=== PATIENT | male | born 1960 | race Caucasian/White ===

== ENCOUNTER 2017-10-11 14:16 | Inpatient (IN) ==
[2017-10-11 15:40] LABS: Basophils # 0.1 K/mcL (0.0-0.2); Basophils % 0.8 %; Eosinophils # 0.1 K/mcL (0.0-0.6); Eosinophils % 1.5 %; Hematocrit 43.7 % (37.5-50.1); Immature Granulocytes % 0.7 % (0-4); Lymphocytes # 1.1 K/mcL (0.6-4.6); Lymphocytes % 18.5 %; Mean Corpuscular Hemoglobin 27.6 pg (28.0-33.3); Mean Platelet Volume 9.9 fL (9.4-12.4); Monocytes # 0.8 K/mcL (0.0-1.3); Monocytes % 12.6 %; Nucleated Red Blood Cells 0.5 /100 WBC (0); Platelet Count 269 K/mcL (140-400); Red Blood Count 5.08 M/mcL (4.19-5.50); Red Cell Distribution Width 15.9 % (11.5-14.5); Segmented Neutrophils % 65.9 %
[2017-10-11 15:49] LABS: INR 1.7
[2017-10-11 15:57] LABS: Troponin I < 0.03 ng/mL (< 0.04)
--- NOTE | 2017-10-11 17:12 | Emergency Department Note ---
Disposition Clinical Impression: CHF exacerbation Qualifiers: Heart failure type: combined systolic and diastolic Qualified Code(s): I50.43 - Acute on chronic combined systolic (congestive) and diastolic (congestive) heart failure Fluid overload Qualifiers: Hypervolemia type: unspecified Qualified Code(s): E87.70 - Fluid overload, unspecified Disposition: Admitted As Inpatient Condition: Undetermined Referrals: NONE,PCP [Primary Care Provider] - Forms: ED Satisfaction Letter, Work/School Release Time of Disposition: 19:19 General Adult HPI - General Chief complaint: ED General Medical Stated complaint: SWELLING LEGS Time Seen by Provider: 10/11/17 16:43 Source: patient Mode of arrival: ambulatory Limitations: no limitations Nursing Notes Reviewed: Yes Vital Signs Reviewed: Yes - History of Present Illness HPI Narrative: 56-year-old male with extensive history of congestive heart failure with an EF of roughly 10% according to patient's history. He arrives to the emergency department complaining of worsening abdominal pain, swelling and bilateral lower extremity swelling as well as dyspnea when he lays flat. The patient states this is ongoing for the past few days. He denies any chest pain. The patient states he was recently released from the hospital 4 days ago. The patient denies any other complaints at this time. Pain Scale: 0 - Related Data Home Medications Medication Instructions Recorded Confirmed Apixaban [Eliquis] 5 mg PO BID 10/11/17 10/11/17 Carvedilol 3.125 mg PO BID 10/11/17 10/11/17 Lidocaine Patch [Lidoderm 5% patch] 1 each TP DAILY PRN 10/11/17 10/11/17 Lovastatin [Mevacor] 20 mg PO QPM 10/11/17 10/11/17 Oxycodone HCl/Acetaminophen 1 each PO Q6H PRN 10/11/17 10/11/17 [Percocet 5-325 mg Tablet] Pantoprazole Sodium [Protonix] 40 mg PO QAM 10/11/17 10/11/17 Potassium Chloride [K-Tab ER] 20 meq PO BID 10/11/17 10/11/17 Allergies Allergy/AdvReac Type Severity Reaction Status Date / Time No Known Allergies Allergy Verified 10/11/17 14:43 All systems ED: reviewed and negative except as stated. Constitutional: Reports: weakness. Denies: fever, chills ENT ED: Denies: congestion Cardiovascular: Reports: dyspnea on exertion, orthopnea, edema. Denies: chest pain, palpitations, syncope Respiratory: Reports: dyspnea. Denies: cough, wheezes Gastrointestinal: Denies: abdominal pain, nausea, vomiting Genitourinary: Denies: urgency, dysuria Musculoskeletal: Denies: back pain Neurological: Denies: headache Past Medical History - Past Medical History Attestation: Yes The following information was validated with the patient. Source: patient Medical history: Reports: CHF, hyperlipidemia, hypertension, myocardial infarction Psychiatric history: Reports: no psych history - Social History Smoking Status: Former smoker Smokeless Tobacco Status: No Alcohol use: Reports: none Drug use: Reports: none Physical Exam - General Limitations: no limitations General appearance: alert, in no apparent distress - Head Head exam: atraumatic, normocephalic, normal inspection - Eye Eye exam: Present: normal appearance, PERRL, EOMI - ENT ENT exam: normal exam, normal oropharynx, mucous membranes moist - Neck Neck exam: Present: full ROM, trachea midline, other (JVD noted on exam) - Chest Chest inspection: Present: normal inspection, symmetric chest wall rise - Respiratory Respiratory exam: Present: normal lung sounds bilaterally - Cardiovascular Cardiovascular exam: Present: regular rate - Abdominal Exam Abdominal exam: Present: soft, Non-Tender. Absent: tenderness, distention, guarding, rebound, rigidity - Extremities Exam Extremities exam: Present: normal inspection, full ROM. Absent: tenderness, pedal edema - Neurological Exam Neurological exam: Present: alert, oriented X3 - Skin Skin exam: Present: warm Course Vital Signs Temperature 0 F L 10/11/17 14:42 Pulse Rate 89 10/11/17 14:42 Respiratory Rate 16 10/11/17 14:42 Blood Pressure 101/74 10/11/17 14:42 O2 Sat by Pulse Oximetry 99 10/11/17 14:42 Temperature 0 F L 10/11/17 14:42 Pulse Rate 80 10/11/17 17:03 Respiratory Rate 18 10/11/17 17:03 Blood Pressure 91/75 10/11/17 17:03 O2 Sat by Pulse Oximetry 96 10/11/17 17:03 Oxygen Delivery Oxygen Delivery Room Air Medical Decision Making - MDM Narrative Medical decision making narrative: Workup in the emergency department demonstrates findings consistent with a CHF exacerbation the patient is an elevated BNP. There is cardiomegaly noted on chest x-ray. In addition the patient does have some elevated bilirubin, but EKG demonstrates no malignant etiology for this. This is likely reactionary finding associated with the patient's CHF. The patient has a history of ascites that was needed to be drawn off by paracentesis. Patient does have some noted ascites on examination as well. The patient will be admitted to the hospital at this time for further workup and care. The patient made aware and agrees to plan. We did administer 40 mg IV Lasix upon arrival to the emergency department. No further questions or concerns noted at this time. Accepted by Dr. Carroll. - Lab Data Lab results reviewed: Yes I reviewed the patient's lab results. Result diagrams: 10/11/17 14:58 10/11/17 15:23 Lab Results 10/11/17 10/11/17 10/11/17 Range/Units 14:48 14:58 14:58 WBC 6.1 (4.3-11.1) K/mcL RBC 5.08 (4.19-5.50) M/mcL Hgb 14.0 (12.9-16.9) g/dL Hct 43.7 (37.5-50.1) % MCV 86.0 (83.0-100.0) fL MCH 27.6 L (28.0-33.3) pg MCHC 32.0 (31.6-35.5) g/dL RDW 15.9 H (11.5-14.5) % Plt Count 269 (140-400) K/mcL MPV 9.9 (9.4-12.4) fL Immature Gran % 0.7 (0-4) % Seg Neutrophils % 65.9 % Lymphocytes % 18.5 % Monocytes % 12.6 % Eosinophils % 1.5 % Basophils % 0.8 % Neutrophils # 4.0 (1.6-8.9) K/mcL Lymphocytes # 1.1 (0.6-4.6) K/mcL Monocytes # 0.8 (0.0-1.3) K/mcL Eosinophils # 0.1 (0.0-0.6) K/mcL Basophils # 0.1 (0.0-0.2) K/mcL Nucleated RBCs/100 WBC 0.5 H (0) /100 WBC PT 19.0 H (9.4-12.1) Seconds INR 1.7 APTT 36.0 (26.0-36.0) Seconds Sodium (136-145) mEq/L Potassium (3.5-5.1) mEq/L Chloride (98-107) mEq/L Carbon Dioxide (23-29) mEq/L BUN (6-20) mg/dL Creatinine (0.70-1.30) mg/dL Est GFR ( Amer) (> 60) Est GFR (Non-Af Amer) (> 60) BUN/Creatinine Ratio (6-26) Glucose (70-105) mg/dL Calculated Osmolality (280-300) Calcium (8.6-10.3) mg/dL Total Bilirubin (0.3-1.0) mg/dL Direct Bilirubin (0.0-0.2) mg/dL Indirect Bilirubin (0.0-1.2) mg/dL AST (13-39) Units/L ALT (7-52) Units/L Alkaline Phosphatase (34-104) Units/L Troponin I (< 0.04) ng/mL B-Natriuretic Peptide 1848 H (Less than 100) pg/mL Serum Total Protein (6.4-8.9) g/dL Albumin (3.5-5.7) g/dL Globulin (2.4-3.5) g/dL Albumin/Globulin Ratio (1.1-2.2) /10/25 Range/Units 15:23 WBC (4.3-11.1) K/mcL RBC (4.19-5.50) M/mcL Hgb (12.9-16.9) g/dL Hct (37.5-50.1) % MCV (83.0-100.0) fL MCH (28.0-33.3) pg MCHC (31.6-35.5) g/dL RDW (11.5-14.5) % Plt Count (140-400) K/mcL MPV (9.4-12.4) fL Immature Gran % (0-4) % Seg Neutrophils % % Lymphocytes % % Monocytes % % Eosinophils % % Basophils % % Neutrophils # (1.6-8.9) K/mcL Lymphocytes # (0.6-4.6) K/mcL Monocytes # (0.0-1.3) K/mcL Eosinophils # (0.0-0.6) K/mcL Basophils # (0.0-0.2) K/mcL Nucleated RBCs/100 WBC (0) /100 WBC PT (9.4-12.1) Seconds INR APTT (26.0-36.0) Seconds Sodium 130 L (136-145) mEq/L Potassium 4.9 (3.5-5.1) mEq/L Chloride 97 L (98-107) mEq/L Carbon Dioxide 25 (23-29) mEq/L BUN 26 H (6-20) mg/dL Creatinine 1.22 (0.70-1.30) mg/dL Est GFR ( Amer) > 60 (> 60) Est GFR (Non-Af Amer) > 60 (> 60) BUN/Creatinine Ratio 21 (6-26) Glucose 94 (70-105) mg/dL Calculated Osmolality 275 L (280-300) Calcium 9.1 (8.6-10.3) mg/dL Total Bilirubin 2.5 H (0.3-1.0) mg/dL Direct Bilirubin 1.5 H (0.0-0.2) mg/dL Indirect Bilirubin 1.0 (0.0-1.2) mg/dL AST 54 H (13-39) Units/L ALT 57 H (7-52) Units/L Alkaline Phosphatase 195 H (34-104) Units/L Troponin I < 0.03 (< 0.04) ng/mL B-Natriuretic Peptide (Less than 100) pg/mL Serum Total Protein 7.0 (6.4-8.9) g/dL Albumin 3.7 (3.5-5.7) g/dL Globulin 3.3 (2.4-3.5) g/dL Albumin/Globulin Ratio 1.1 (1.1-2.2) - Radiology Data Radiology results reviewed: Yes I reviewed the patient's radiology results. Chest X-Ray 10/11/17 14:48 IMPRESSION: Mild cardiomegaly. D/ / Mike Apodaca MD / Mike Apodaca MD Interpreting Provider: Mike Apodaca MD Abdomen/Pelvis CT 10/11/17 17:56 IMPRESSION: 1. Heterogeneous enhancement of the liver. This is a nonspecific finding but given his history of elevated bilirubin this may be secondary to infectious or inflammatory hepatitis. Neoplastic process is less likely. I would suggest correlation with liver function studies. 2. Trace ascites. 3. Cardiomegaly. 4. Diverticulosis without obvious inflammation. 5. Fat containing left inguinal hernia. D/ / Cody Stokes MD / Cody Stokes MD Interpreting Provider: Cody Stokes MD - EKG Data EKG #1 EKG attestation: Yes I reviewed and interpreted this EKG. EKG results narrative: Heart rate 82 beats for minute. Electronic ventricular pacemaker. No ST elevation or ST depression noted. Attestation Statement - Attestation Attestation: I, Luis Felipe Hogan DO, examined this patient [id number] and my medical decision-making was reviewed with Tucker Easley DO, Resident Physician. I agree with the documented findings, disposition and treatment plan as described except to the extent set forth below. Please see my progress notes for details.
[2017-10-11] MEDS ORDERED: Furosemide 40 MG/4 ML VIAL IVP ONE (17:13)
--- NOTE | 2017-10-11 17:27 | Emergency Department Note ---
Disposition Clinical Impression: Fluid overload CHF exacerbation Qualifiers: Heart failure type: combined systolic and diastolic Qualified Code(s): I50.43 - Acute on chronic combined systolic (congestive) and diastolic (congestive) heart failure Disposition: Admitted As Inpatient Condition: Good Referrals: NONE,PCP [Primary Care Provider] - Forms: ED Satisfaction Letter, Work/School Release Time of Disposition: 18:53 General Adult HPI - General Chief complaint: ED General Medical Stated complaint: SWELLING LEGS Time Seen by Provider: 10/11/17 16:43 Source: patient Mode of arrival: ambulatory Limitations: no limitations - History of Present Illness Pain Scale: 0 - Related Data Home Medications Medication Instructions Recorded Confirmed Apixaban [Eliquis] 5 mg PO BID 10/11/17 10/11/17 Carvedilol 3.125 mg PO BID 10/11/17 10/11/17 Lidocaine Patch [Lidoderm 5% patch] 1 each TP DAILY PRN 10/11/17 10/11/17 Lovastatin [Mevacor] 20 mg PO QPM 10/11/17 10/11/17 Oxycodone HCl/Acetaminophen 1 each PO Q6H PRN 10/11/17 10/11/17 [Percocet 5-325 mg Tablet] Pantoprazole Sodium [Protonix] 40 mg PO QAM 10/11/17 10/11/17 Potassium Chloride [K-Tab ER] 20 meq PO BID 10/11/17 10/11/17 Allergies Allergy/AdvReac Type Severity Reaction Status Date / Time No Known Allergies Allergy Verified 10/11/17 14:43 Constitutional: Reports: weakness. Denies: fever, chills ENT ED: Denies: congestion Cardiovascular: Reports: dyspnea on exertion, orthopnea, edema. Denies: chest pain, palpitations, syncope Respiratory: Reports: dyspnea. Denies: cough, wheezes Gastrointestinal: Denies: abdominal pain, nausea, vomiting Genitourinary: Denies: urgency, dysuria Musculoskeletal: Denies: back pain Neurological: Denies: headache Past Medical History - Past Medical History Medical history: Reports: CHF, hyperlipidemia, hypertension, myocardial infarction Psychiatric history: Reports: no psych history - Social History Smoking Status: Former smoker Smokeless Tobacco Status: No Alcohol use: Reports: none Drug use: Reports: none Physical Exam - General Limitations: no limitations General appearance: alert, in no apparent distress Course Vital Signs Temperature 0 F L 10/11/17 14:42 Pulse Rate 89 10/11/17 14:42 Respiratory Rate 16 10/11/17 14:42 Blood Pressure 101/74 10/11/17 14:42 O2 Sat by Pulse Oximetry 99 10/11/17 14:42 Temperature 0 F L 10/11/17 14:42 Pulse Rate 80 10/11/17 17:03 Respiratory Rate 18 10/11/17 17:03 Blood Pressure 91/75 10/11/17 17:03 O2 Sat by Pulse Oximetry 96 10/11/17 17:03 Oxygen Delivery Oxygen Delivery Room Air Medical Decision Making - Lab Data Result diagrams: 10/11/17 14:58 10/11/17 15:23 Lab Results 10/11/17 10/11/17 10/11/17 Range/Units 14:48 14:58 14:58 WBC 6.1 (4.3-11.1) K/mcL RBC 5.08 (4.19-5.50) M/mcL Hgb 14.0 (12.9-16.9) g/dL Hct 43.7 (37.5-50.1) % MCV 86.0 (83.0-100.0) fL MCH 27.6 L (28.0-33.3) pg MCHC 32.0 (31.6-35.5) g/dL RDW 15.9 H (11.5-14.5) % Plt Count 269 (140-400) K/mcL MPV 9.9 (9.4-12.4) fL Immature Gran % 0.7 (0-4) % Seg Neutrophils % 65.9 % Lymphocytes % 18.5 % Monocytes % 12.6 % Eosinophils % 1.5 % Basophils % 0.8 % Neutrophils # 4.0 (1.6-8.9) K/mcL Lymphocytes # 1.1 (0.6-4.6) K/mcL Monocytes # 0.8 (0.0-1.3) K/mcL Eosinophils # 0.1 (0.0-0.6) K/mcL Basophils # 0.1 (0.0-0.2) K/mcL Nucleated RBCs/100 WBC 0.5 H (0) /100 WBC PT 19.0 H (9.4-12.1) Seconds INR 1.7 APTT 36.0 (26.0-36.0) Seconds Sodium (136-145) mEq/L Potassium (3.5-5.1) mEq/L Chloride (98-107) mEq/L Carbon Dioxide (23-29) mEq/L BUN (6-20) mg/dL Creatinine (0.70-1.30) mg/dL Est GFR ( Amer) (> 60) Est GFR (Non-Af Amer) (> 60) BUN/Creatinine Ratio (6-26) Glucose (70-105) mg/dL Calculated Osmolality (280-300) Calcium (8.6-10.3) mg/dL Total Bilirubin (0.3-1.0) mg/dL Direct Bilirubin (0.0-0.2) mg/dL Indirect Bilirubin (0.0-1.2) mg/dL AST (13-39) Units/L ALT (7-52) Units/L Alkaline Phosphatase (34-104) Units/L Troponin I (< 0.04) ng/mL B-Natriuretic Peptide 1848 H (Less than 100) pg/mL Serum Total Protein (6.4-8.9) g/dL Albumin (3.5-5.7) g/dL Globulin (2.4-3.5) g/dL Albumin/Globulin Ratio (1.1-2.2) 10/11/17 Range/Units 15:23 WBC (4.3-11.1) K/mcL RBC (4.19-5.50) M/mcL Hgb (12.9-16.9) g/dL Hct (37.5-50.1) % MCV (83.0-100.0) fL MCH (28.0-33.3) pg MCHC (31.6-35.5) g/dL RDW (11.5-14.5) % Plt Count (140-400) K/mcL MPV (9.4-12.4) fL Immature Gran % (0-4) % Seg Neutrophils % % Lymphocytes % % Monocytes % % Eosinophils % % Basophils % % Neutrophils # (1.6-8.9) K/mcL Lymphocytes # (0.6-4.6) K/mcL Monocytes # (0.0-1.3) K/mcL Eosinophils # (0.0-0.6) K/mcL Basophils # (0.0-0.2) K/mcL Nucleated RBCs/100 WBC (0) /100 WBC PT (9.4-12.1) Seconds INR APTT (26.0-36.0) Seconds Sodium 130 L (136-145) mEq/L Potassium 4.9 (3.5-5.1) mEq/L Chloride 97 L (98-107) mEq/L Carbon Dioxide 25 (23-29) mEq/L BUN 26 H (6-20) mg/dL Creatinine 1.22 (0.70-1.30) mg/dL Est GFR ( Amer) > 60 (> 60) Est GFR (Non-Af Amer) > 60 (> 60) BUN/Creatinine Ratio 21 (6-26) Glucose 94 (70-105) mg/dL Calculated Osmolality 275 L (280-300) Calcium 9.1 (8.6-10.3) mg/dL Total Bilirubin 2.5 H (0.3-1.0) mg/dL Direct Bilirubin 1.5 H (0.0-0.2) mg/dL Indirect Bilirubin 1.0 (0.0-1.2) mg/dL AST 54 H (13-39) Units/L ALT 57 H (7-52) Units/L Alkaline Phosphatase 195 H (34-104) Units/L Troponin I < 0.03 (< 0.04) ng/mL B-Natriuretic Peptide (Less than 100) pg/mL Serum Total Protein 7.0 (6.4-8.9) g/dL Albumin 3.7 (3.5-5.7) g/dL Globulin 3.3 (2.4-3.5) g/dL Albumin/Globulin Ratio 1.1 (1.1-2.2) Attestation Statement - Attestation Attestation: I, Luis Felipe Hgoan DO, examined this patient [id number] and my medical decision-making was reviewed with Tucker Easley DO, Resident Physician. I agree with the documented findings, disposition and treatment plan as described except to the extent set forth below. Please see my progress notes for details. 56-year-old male presents to the emergency room for evaluation rotation of fluid overload shortness of breath. Patient long-standing history of poor cardiac function with a 3 vessel bypass, multiple stenting. Patient denies any active chest pain at this point. Denies any recent fevers chills nausea vomiting or diarrhea. Denies any chest pain shortness of breath at this time. Patient was seen and evaluated with a [facility] for the last weeks and was discharged home with recommendation for close follow-up. Vital signs are reviewed and are stable at this point. Blood pressure is slightly low at this time considering he has a normal healthy-appearing patient. We will continue with close monitoring of his blood pressure this time. Chest x-ray EKG and labs are resulted and reviewed. Patient has a pacemaker with atrial and ventricular contractions noted. Patient does not have any records at this facility for comparable EKGs. Records will be collected from outside facility. No acute intervention is required at this time onset of Lasix secondary to the pulmonary congestion noted on chest x-ray as well as elevated BNP. The remainder of his labs appear to be unremarkable. His physical exam does not show any acute concerning at this point. His lungs are clear his heart is regular. His abdomen is soft nontender nondistended. He does have pitting edema to the proximal aspect of the shins bilaterally. Is a +2 out of 4 distribution. Patient's pulses are intact examined today but he does have some intermittent exertional dyspnea and orthopnea secondary to fluid overload. Patient will require admission to the hospital for definitive management. Restriction along with diuresis. Patient was given first dose of Lasix in the emergency room. No critical care applied to this patient's treatment course. See detailed documentation of the physical exam, medical intervention, medical decision-making and disposition. Liver function testing lipase were added on at this point to make sure that the patient does not have any acute signs of liver failure secondary to have mild jaundice presentation on the initial examination. 1745 Patient found to have elevated total bilirubin as well as liver function testing abnormalities and elevated alkaline phosphatase. The concern is noted for painless jaundice and pancreatic related issue causing the symptoms. CT imaging with IV contrast will be ordered at the patient's abdomen prior to the admission process being completed. [address] scan that shows dilation of the hepatic system at this point. No acute abnormalities noted. There is free fluid in the abdomen consistent with ascites. Patient will be admitted at this time for further evaluation and management. No acute surgical intervention required. Patient is otherwise stable.
[2017-10-11 17:32] LABS: BUN/Creatinine Ratio 21 (6-26); Blood Urea Nitrogen 26 mg/dL (6-20); Calcium 9.1 mg/dL (8.6-10.3); Carbon Dioxide 25 mEq/L (23-29); Chloride 97 mEq/L (98-107); Glucose 94 mg/dL (70-105); Osmolality,Calculated 275 (280-300); Potassium 4.9 mEq/L (3.5-5.1); Sodium 130 mEq/L (136-145); eGFR For African Americans > 60 (> 60); eGFR For Non-African Americans > 60 (> 60)
[2017-10-11 17:50] LABS: Alanine Aminotransferase 57 Units/L (7-52); Albumin 3.7 g/dL (3.5-5.7); Albumin/Globulin Ratio 1.1 (1.1-2.2); Alkaline Phosphatase 195 Units/L (34-104); Aspartate Amino Transferase 54 Units/L (13-39); Bilirubin,Direct 1.5 mg/dL (0.0-0.2); Bilirubin,Total 2.5 mg/dL (0.3-1.0); Globulin 3.3 g/dL (2.4-3.5)
[2017-10-11] MEDS ORDERED: Naloxone 0.4 MG/ML INJ IVP PRN (22:15)
--- NOTE | 2017-10-11 22:15 | Internal Med History&Physical ---
<Ting Jeronimo - Last Filed: 10/12/17 00:37> Date of Encounter: 10/12/17 Time of Encounter: 22:12 Assessment and Plan (1) Heart failure, systolic, with acute decompensation Current visit: Yes Status: Acute 56-year-old male NHYA Class 4 s/p AICD with EF < 20% presenting with progressive dyspnea, and symptoms of abdominal and peripheral congestion Reviewed EKG, chest radiograph, BNPs (405) Continuous monitoring of vital signs, concern remains due to patient's low blood pressures We will need serial vital signs. If systolic blood pressure decreases less than 85, or change in ultimate or mental status noted, will consider addition of inotropes Diuretics - 20mg q8h. Hesitant to increase dosage due to BP. Hold aldactone due to BP Continues oxygen Continue head of bed elevated. Encouraged patient to sit up in chair as tolerated Fluid and Sodium Restriction Diet Patient will require optimization of outpatient medications Cardiology on consult (2) Hyponatremia Current visit: Yes Status: Acute Secondary to CHF. Continue to monitor. (3) Elevated LFTs Current visit: Yes Status: Acute Elevated aminotransferases, likely secondary to hepatocellular injury from vascular process with hypotensiveo state and CHF. However viral or infectious etiology cannot be excluded at this time. Hepatic panel in a.m. pending. Hepatitits panel pending. Holding statin d/t increased risk of hepatic dysfunction. (4) Acute kidney injury superimposed on chronic kidney disease Current visit: Yes Status: Acute PREMA likely secondary to reduced effective arterial volume secondary to decreased cardiac contractility from CHF. Avoid nephrotoxic insults, as possible. And goal for optimization of hemodynamics (5) Gouty arthritis Current visit: Yes Status: Acute Chronic condition. (6) CAD (coronary artery disease) Current visit: Yes Status: Acute Continue home medication. CHF possibly ischemic in nature. Cardiology on consult Qualifiers: Coronary Disease-Associated Artery/Lesion type: bypass graft [place] vs. transplanted heart: [place] heart Associated angina: without angina Qualified Code(s): I25.810 - Atherosclerosis of coronary artery bypass graft(s) without angina pectoris (7) History of hypertension Current visit: Yes Status: Acute Continue to monitor vital signs. B-Blockers were reduced in patient's last hospitalization, due to acute decompensated heart failure. (8) GERD (gastroesophageal reflux disease) Current visit: Yes Status: Acute Hold at this time. Qualifiers: Esophagitis presence: esophagitis presence not specified Qualified Code(s) : K21.9 - Gastro-esophageal reflux disease without esophagitis (9) Hyperlipidemia Current visit: Yes Status: Acute Hold statin, due to elevated in aminotransferases and pending workup. Qualifiers: Hyperlipidemia type: unspecified Qualified Code(s): E78.5 - Hyperlipidemia , unspecified (10) Atrial fibrillation Current visit: Yes Status: Acute Continue Eliquis. Continuous telemetry for rate monitoring Qualifiers: Atrial fibrillation type: paroxysmal Qualified Code(s): I48.0 - Paroxysmal atrial fibrillation (11) DVT prophylaxis Current visit: Yes Status: Acute Patient on chronic anticoagulation. Internal Medicine - H&P: HPI Chief complaint: Shortnesss of breath and leg edema Admitted From: Home History of present illness: Mr. Rodrigez is a 56 year old male with past medical history of chronic systolic congestive heart failure with September 2017 transthoracic echo with an estimated ejection fraction less than <20 presenting with shortness of breath following 2 recent hospitalization 2 weeks ago and 4 days ago, respectively, at outside hospitals. Patient endorses shortness of breath at both ALD's and at rest. Endorses orthopnea. Endorses peripheral edema for 2-3 weeks. Estimates a weight gain of about 10 pounds in the last month. Endorses abdominal fullness. He states he was taking 2 mg Bumex twice a day in July. And most recently is now taking 40 mg Lasix twice a day. Endorses pain in hands bilaterally, which she attributes to gouty arthritis. Denies nausea, vomiting, chest pain, diarrhea. Endorses cold intolerance. Past Med Surg Social Fam HX - Past Medical History Medical history: CHF, hyperlipidemia, hypertension, myocardial infarction Psychiatric history: no psych history - Social History Smoking Status: Former smoker Smokeless Tobacco Status: No Alcohol use: none Drug use: none Internal Medicine - H&P: Meds Apixaban [Eliquis] 5 mg PO BID 10/11/17 [History] Carvedilol 3.125 mg PO BID 10/11/17 [History] Lidocaine Patch [Lidoderm 5% patch] 1 each TP DAILY PRN 10/11/17 [History] Lovastatin [Mevacor] 20 mg PO QPM 10/11/17 [History] Oxycodone HCl/Acetaminophen [Percocet 5-325 mg Tablet] 1 each PO Q6H PRN [History] Pantoprazole Sodium [Protonix] 40 mg PO QAM 10/11/17 [History] Potassium Chloride [K-Tab ER] 20 meq PO BID 10/11/17 [History] 3 Allergy/AdvReac Type Severity Reaction Status Date / Time No Known Allergies Allergy Verified 10/11/17 14:43 All Systems PM: A 10-system review of systems was performed and is negative for pertinent findings except as documented above in the HPI. - Constitutional Constitutional: as per HPI - Cardiovascular Cardiovascular ROS IM: as per HPI - Respiratory Respiratory: as per HPI - Gastrointestinal Gastrointestinal: as per HPI - Constitutional Vitals: Temp Pulse Resp BP Pulse Ox 0 F L 80 18 105/70 98 10/11/17 14:42 10/11/17 21:27 10/11/17 21:27 10/11/17 21:27 10/11/17 21:27 General appearance: Present: cooperative, no acute distress, answers questions appropriately Exam: thin - Head Head exam: Present: atraumatic, normocephalic - Neck Additional comments: JVD. - Respiratory Respiratory exam: Absent: accessory muscle use, chest wall tenderness, respiratory distress, wheezes Additional comments: Faint rales in lower bases - GI/Abdominal GI/Abdominal exam: Present: normal bowel sounds, no peritoneal signs. Absent: rebound, tenderness Additional comments: Positive hepatojugular reflex.No hepatomegaly appreciated on exam - Extremities Exam Extremities exam: Present: pedal edema (3), tenderness. Absent: calf tenderness , mottling Additional comments: 3+ bilaterally, at level below knees Internal Med - H&P Results - Labs CBC & Chem 7: 10/11/17 14:58 10/11/17 15:23 - Impressions ITS Impressions Chest X-Ray 10/11/17 14:48 IMPRESSION: Mild cardiomegaly. D/ / Mike Apodaca MD / Mike Apodaca MD Interpreting Provider: Mike Apodaca MD Abdomen/Pelvis CT 10/11/17 17:56 IMPRESSION: 1. Heterogeneous enhancement of the liver. This is a nonspecific finding but given his history of elevated bilirubin this may be secondary to infectious or inflammatory hepatitis. Neoplastic process is less likely. I would suggest correlation with liver function studies. 2. Trace ascites. 3. Cardiomegaly. 4. Diverticulosis without obvious inflammation. 5. Fat containing left inguinal hernia. D/ / Cody Stokes MD / Cody Stokes MD Interpreting Provider: Cody Stokes MD EKG Ventricular rate 82. WY 146. QRS 122. QT/QTC 396/435. Ventricular pacemaker noted Findings reviewed with attending. <Cayetano Saldaña - Last Filed: 10/12/17 03:47> Date of Encounter: 10/11/17 Internal Medicine - H&P: HPI History of present illness: Mr. Rodrigez is a 56 year old male All Systems PM: A 10-system review of systems was performed and is negative for pertinent findings except as documented above in the HPI. - Constitutional Vitals: Temp Pulse Resp BP Pulse Ox 97.5 F L 84 18 101/35 93 10/11/17 22:13 10/12/17 03:31 10/12/17 03:31 10/12/17 03:31 10/12/17 03:31 Internal Med - H&P Results - Labs CBC & Chem 7: 10/12/17 01:32 10/12/17 01:32 Labs: Short CBC 10/12/17 Range/Units 01:32 WBC 5.4 (4.3-11.1) K/mcL Hgb 13.0 (12.9-16.9) g/dL Hct 40.6 (37.5-50.1) % Plt Count 249 (140-400) K/mcL Neutrophils # 3.7 (1.6-8.9) K/mcL BMP 10/12/17 01:32 Sodium 132 L Potassium 3.8 Chloride 98 Carbon Dioxide 26 BUN 25 H Creatinine 1.19 Glucose 154 H Calcium 8.6 Liver Function 10/12/17 Range/Units 01:32 Total Bilirubin 2.2 H (0.3-1.0) mg/dL Direct Bilirubin 1.3 H (0.0-0.2) mg/dL AST 43 H (13-39) Units/L ALT 49 (7-52) Units/L Alkaline Phosphatase 176 H (34-104) Units/L Albumin 3.6 (3.5-5.7) g/dL - Attending Attestation I examined this patient and my medical decision-making was reviewed with the Resident Physician Dr. Jeronimo. I agree with the documented findings, disposition and treatment plan as described except to the extent set forth below. Mr. Rodrigez is a 56 year old male with past medical history of HTN, Paroxysmal Afib, Ischemic dilated cardiomyopathy, and Systolic CHF with LVEF 15% pt who recenetly admitted at [facility] for CHF exacerbation now he was brought into our ER by his parents stating he has been having worsening SOB and b/l LE edema. Gen: A,A, O x3 Chest: Diminished BS b/l, mild carckles Heart: S1S2 + RRR No murmurs Abd: Soft NT BS + Ext : 2+ Pitting edema a/p 1. Acute Systolic CHF exacerbation 2. Anasrca 3. Elevated LFT's -Rt heart failure 4. Dilated cardiomyopahty 5. h/o CAD s/p CABG 6. Paroxysmal A fib on tele Lasix 20mg Q8hr Held Aldactone due to low BP Consult card in AM
[2017-10-11] MEDS ORDERED: *HR* OxyCODONE/APAP 5/325 TABLET PO PRN (22:28)
[2017-10-11] MEDS: Apixaban 5 MG TABLET PO SCH (23:35)
[2017-10-12] MEDS ORDERED: Furosemide 20 MG/2 ML VIAL IVP SCH (00:45)
[2017-10-12 02:01] LABS: Basophils % 0.6 %; Eosinophils # 0.1 K/mcL (0.0-0.6); Eosinophils % 1.1 %; Hematocrit 40.6 % (37.5-50.1); Immature Granulocytes % 0.4 % (0-4); Lymphocytes # 1.2 K/mcL (0.6-4.6); Lymphocytes % 21.3 %; Mean Corpuscular Hemoglobin 27.3 pg (28.0-33.3); Mean Corpuscular Volume 85.3 fL (83.0-100.0); Mean Platelet Volume 10.2 fL (9.4-12.4); Monocytes # 0.5 K/mcL (0.0-1.3); Monocytes % 8.3 %; Neutrophils # 3.7 K/mcL (1.6-8.9); Platelet Count 249 K/mcL (140-400); Red Blood Count 4.76 M/mcL (4.19-5.50); Red Cell Distribution Width 15.8 % (11.5-14.5); Segmented Neutrophils % 68.3 %
[2017-10-12 02:16] LABS: BUN/Creatinine Ratio 21 (6-26); Blood Urea Nitrogen 25 mg/dL (6-20); Calcium 8.6 mg/dL (8.6-10.3); Carbon Dioxide 26 mEq/L (23-29); Chloride 98 mEq/L (98-107); Glucose 154 mg/dL (70-105); Osmolality,Calculated 281 (280-300); Potassium 3.8 mEq/L (3.5-5.1); Sodium 132 mEq/L (136-145); eGFR For African Americans > 60 (> 60); eGFR For Non-African Americans > 60 (> 60)
[2017-10-12 02:17] LABS: Albumin 3.6 g/dL (3.5-5.7); Albumin/Globulin Ratio 1.3 (1.1-2.2); Bilirubin,Direct 1.3 mg/dL (0.0-0.2); Bilirubin,Indirect 0.9 mg/dL (0.0-1.2); Bilirubin,Total 2.2 mg/dL (0.3-1.0); Globulin 2.7 g/dL (2.4-3.5); Total Protein 6.3 g/dL (6.4-8.9)
[2017-10-12 03:11] LABS: Hepatitis B Surface Antigen Nonreactive (Nonreactive)
[2017-10-12] MEDS: Furosemide 20 MG/2 ML VIAL IVP SCH ×3 (05:37→20:55)
--- NOTE | 2017-10-12 09:53 | Cardiology Consult Note ---
<JimboAnahiGisela L - Last Filed: 10/12/17 10:03> Date of Encounter: 10/12/17 Time of Encounter: 08:30 Assessment and Plan (1) Systolic CHF Current Visit: Yes Status: Acute Acute on chronic CHF secondary to medication/dietary non-compliance. Hospitalization 09/24-09/29/[address] [facility] and also from 10/02-10/06/17 at [facility] due to CHF exacerbation. Emphasized the importance of compliance with medications, Na/fluid restriction. TTE 10/03/17, EF 20%. Has AICD (suspect BiV). CXR: mild cardiomegaly. BNP 1848. Cumulative I&O: -150 mL. Continue BB and diuresis. If kidney function remains stable, recommend ACEi/ARB upon discharge. Strict I&Os, daily weights, Na/Fluid restriction diet. Qualifiers: Heart failure chronicity: acute on chronic Qualified Code(s): I50.23 - Acute on chronic systolic (congestive) heart failure (2) Ischemic cardiomyopathy Current Visit: Yes Status: Chronic Reported long-standing history of ICMP ~ 9years. Hx of CAD s/p CABG, PCI. Reports recent generator change by assistant associate professor in [place], [place] around 6 months ago, per CXR appears to be BiV-ICD. Plan as above; continue asa, statin, BB. Per outpt [facility] d/c summary, recommended ACEi/ARB when renal function allows. (3) Atrial fibrillation Current Visit: Yes Status: Acute Hx of PAF on BB and Eliquis. SR upon exam. Qualifiers: Atrial fibrillation type: paroxysmal Qualified Code(s): I48.0 - Paroxysmal atrial fibrillation Discussion w patient/family: The assessment and plan as outlined above was discussed with the patient and/or family members who expressed understanding and agreement. All questions were answered. Thank you for involving us in the care of your patient. Please call with any questions. The patient will be discussed and reviewed with Dr. Edwards; changes to be made accordingly. History of Present Illness Consult date: 10/12/17 Requesting physician: Cayetano Saldaña Consult reason: CHF Chief complaint: Shortness of breath, LE edema History of present illness: Mr. Rodrigez is a 56 year old male with PMHx significant for CAD s/p CABG/PCI, ischemic cardiomyopathy s/p AICD, systolic CHF, CKD, gout, HTN, and PAF who presented to [facility] with worsening shortness of breath and LE edema. He notes that he is out of town visiting with his parents, typically follows with Dr. Les Issa in [facility] for Cardiology care. He was hospitalized 09/24-09/[address] [facility] and again 10/02-10/06 at [facility]--d/c summary available for review. He reports initial diagnosis of CAD, CHF close to 9 years ago, reports recent gen change and possible "extra lead" 6 months ago. He reports he quit taking all of his medications several months ago due to GI upset and only recently has become compliant with medications and dietary/fluid restriction. Outside records include: TTE 10/03/17: ([facility]): EF 20% severely dilated RA/LA, moderate MR, RV is mildly dilated with moderate systolic dysfunction TTE ([facility]): EF 15% Past Med Surg Social Fam HX - Past Medical History Attestation: Yes The following information was validated with the patient. Source: patient Medical history: atrial fibrillation, cardiomyopathy, CHF, coronary artery disease, hyperlipidemia, hypertension, myocardial infarction, renal disease Psychiatric history: no psych history - Past Surgical History Surgical History: coronary bypass (CABG), AICD - Social History Smoking Status: Former smoker Smokeless Tobacco Status: No Alcohol use: none Drug use: none Medications and Allergies Apixaban [Eliquis] 5 mg PO BID 10/11/17 [History] Carvedilol 3.125 mg PO BID 10/11/17 [History] Lidocaine Patch [Lidoderm 5% patch] 1 each TP DAILY PRN 10/11/17 [History] Lovastatin [Mevacor] 20 mg PO QPM 10/11/17 [History] Oxycodone HCl/Acetaminophen [Percocet 5-325 mg Tablet] 1 each PO Q6H PRN [History] Pantoprazole Sodium [Protonix] 40 mg PO QAM 10/11/17 [History] Potassium Chloride [K-Tab ER] 20 meq PO BID 10/11/17 [History] 3 Allergy/AdvReac Type Severity Reaction Status Date / Time No Known Allergies Allergy Verified 10/11/17 14:43 All Systems Review: The remainder of the systems were reviewed and are negative - Cardiovascular Cardiovascular: as per HPI Physical Examination Vital Signs, Last 4 Hours Temp Pulse Resp BP Pulse Ox 10/12/17 08:22 100 10/12/17 06:50 97.7 F 83 15 97/67 100 General: Conversant, No Apparent Distress HEENT: Atraumatic, Normocephaly, Mucus Membranes Moist Cardiac: Reg Rate and Rhythm, Normal S1 and S2 Lungs: Normal Breath Sounds Neuro: Alert and responsive Abdomen: Soft, Other (mildly distended) Skin: No rashes noted on visualized skin Extremities: Other (+2 BLE edema) Results 10/12/17 01:32 10/12/17 01:32 Lab Results 10/12/17 10/12/17 10/12/17 01:32 01:32 01:32 WBC 5.4 Hgb 13.0 Hct 40.6 Plt Count 249 Sodium 132 L Potassium 3.8 Chloride 98 Carbon Dioxide 26 BUN 25 H Creatinine 1.19 Glucose 154 H Calcium 8.6 Total Bilirubin 2.2 H AST 43 H ALT 49 Alkaline Phosphatase 176 H B-Natriuretic Peptide 10/12/17 01:32 WBC Hgb Hct Plt Count Sodium Potassium Chloride Carbon Dioxide BUN Creatinine Glucose Calcium Total Bilirubin AST ALT Alkaline Phosphatase B-Natriuretic Peptide 1826 H Active Medications Apixaban (Eliquis) 5 mg PO BID TJ Stop: 04/12/18 22:31 Last Admin: 10/11/17 23:35 Dose: 5 mg Carvedilol (Coreg) 3.125 mg PO BIDWM TJ Stop: 04/13/18 08:01 Last Admin: 10/12/17 08:18 Dose: Not Given Furosemide (Lasix) 20 mg IVP Q8H TJ Stop: 04/13/18 06:01 Last Admin: 10/12/17 05:37 Dose: 20 mg Naloxone HCl (Narcan) 0.4 mg IVP Q2MIN PRN PRN Reason: SEE COMMENTS Stop: 04/12/18 22:16 Omeprazole (Prilosec) 20 mg PO 0630 TJ Stop: 04/13/18 06:31 Oxycodone/Acetaminophen (Percocet 5/325) 1 each PO Q6H PRN PRN Reason: Moderate to Severe Pain Stop: 04/12/18 22:29 Last Admin: 10/12/17 02:03 Dose: 1 each Simvastatin (Zocor) 10 mg PO QPM TJ Stop: 04/13/18 18:01 - Imaging and Cardiology Echo: report reviewed - EKG Interpretation EKG results cardiology: personally reviewed Consult Discharge Plan - Plan Referrals: NONE,PCP [Primary Care Provider] - <Jesse Edwards - Last Filed: 10/12/17 16:23> Date of Encounter: 10/12/17 - Attending Attestation I have personally performed a face to face evaluation on this patient. I have reviewed and agree with the care plan. History and Exam by me shows: 56-year-old male with ischemic cardiomyopathy status post CABG 8 years ago with ejection fraction 20% presents with volume overload currently closer to euvolemic state. Patient likely had dietary indiscretions currently will be living with his family with stricter dietary controls and low-salt low volume diet. He is also status post ICD placement with recurrent episodes of decompensated heart failure. Troponins are negative 2 with bilateral lower extremity edema but no other signs of hypervolemia on exam. Discussed the possibility of an ischemic workup as he has not had one in the last 8 years. This can be obtained as an outpatient. Continue gentle diuresis to dry weight and follow-up heart failure clinic. Assessment and Plan Discussion w patient/family: The assessment and plan as outlined above was discussed with the patient and/or family members who expressed understanding and agreement. All questions were answered. Thank you for involving us in the care of your patient. Please call with any questions. History of Present Illness History of present illness: Mr. Rodrigez is a 56 year old male All Systems Review: The remainder of the systems were reviewed and are negative Physical Examination Vital Signs, Last 4 Hours Temp Pulse Resp BP Pulse Ox 10/12/17 15:13 97.6 F 76 18 92/65 100 Results 10/12/17 01:32 10/12/17 01:32 Lab Results 10/12/17 10/12/17 10/12/17 01:32 01:32 01:32 WBC 5.4 Hgb 13.0 Hct 40.6 Plt Count 249 Sodium 132 L Potassium 3.8 Chloride 98 Carbon Dioxide 26 BUN 25 H Creatinine 1.19 Glucose 154 H Calcium 8.6 Total Bilirubin 2.2 H AST 43 H ALT 49 Alkaline Phosphatase 176 H B-Natriuretic Peptide 10/12/17 01:32 WBC Hgb Hct Plt Count Sodium Potassium Chloride Carbon Dioxide BUN Creatinine Glucose Calcium Total Bilirubin AST ALT Alkaline Phosphatase B-Natriuretic Peptide 1826 H
[2017-10-12] MEDS: Apixaban 5 MG TABLET PO SCH ×2 (10:06→20:55)
--- NOTE | 2017-10-12 13:36 | Internal Med Progress Note ---
Date of Encounter: 10/12/17 Time of Encounter: 10:00 - Assessment and plan (1) Heart failure, systolic, with acute decompensation Current Visit: Yes Status: Acute Assessment and plan: Acute on chronic systolic cardiac failure. Patient has prior ejection fraction in the low 20s. He seems to have dietary indiscretion and problems with adherence to medication regimen. this has been carefully emphasized again. Continue IV diuresis for now. Appreciate cardiology follow-up. Continue to optimize medical management at this time. Would start him on a very low-dose of THONG inhibitor keeping close eye on his blood pressures. Continue fluid restriction and a strict input and output. Check daily weights. (2) Acute kidney injury superimposed on chronic kidney disease Current Visit: Yes Status: Acute Assessment and plan: Creatinine is improved. I will initiate low-dose THONG inhibitor's (3) Atrial fibrillation Current Visit: Yes Status: Acute Assessment and plan: Rate controlled. On anticoagulation. Qualifiers: Atrial fibrillation type: paroxysmal Qualified Code(s): I48.0 - Paroxysmal atrial fibrillation (4) CAD (coronary artery disease) Current Visit: Yes Status: Acute Assessment and plan: Continue home medication. Follow cardiology recommendations. Qualifiers: Coronary Disease-Associated Artery/Lesion type: bypass graft [place] vs. transplanted heart: [place] heart Associated angina: without angina Qualified Code(s): I25.810 - Atherosclerosis of coronary artery bypass graft(s) without angina pectoris (5) Elevated LFTs Current Visit: Yes Status: Acute Assessment and plan: Most likely as a result of chronic passive congestion from underlying CHF. Repeat labs and follow results. (6) History of hypertension Current Visit: Yes Status: Acute Assessment and plan: Manual blood pressure is in the high 90s to low 100s he did continue to monitor closely. This is consistent with patient's poor ejection fraction - Time Spent With Patient Total time spent is greater than 50% in coordination of care (as documented) at patient's floor/unit and/or counseling patient: 25 - 35 minutes - Subjective Interval history: The patient states that he is significantly better as compared to his shortness of breath. He also states that his swelling in the lower extremities is getting much better - Constitutional Vitals: Temp Pulse Resp BP Pulse Ox 97.3 F L 85 17 99/72 98 10/12/17 11:51 10/12/17 11:51 10/12/17 11:51 10/12/17 11:51 10/12/17 11:51 General appearance: Present: cooperative, no acute distress, answers questions appropriately Exam: GENERAL: Alert, no distress, cooperative EYES: PERRLA, EOMI EARS: External ears normal, canals clear OROPHARYNX: Lips, mucosa, and tongue normal. Teeth and gums normal. Oropharynx normal. NECK: Mild jugulovenous distention, No carotid bruits, Carotid pulse normal contour, Supple LUNGS: Lungs clear to auscultation, Good diaphragmatic excursion CARDIAC: Normal S1 and S2; no rubs, murmurs, or gallops ABDOMEN: Abdomen soft, non-tender, BS normal, No masses or organomegaly EXTREMITIES: 1+ pitting edema in bilateral lower extremities NEURO: Gait normal. Reflexes normal and symmetric. Sensation grossly intact, Cranial nerves II-XII intact PULSES: 2+ radial, 2+ carotid Rest of the exam is non contributory Internal Medicine: Result - Labs CBC & Chem 7: 10/12/17 01:32 10/12/17 01:32 Labs: Short CBC 10/12/17 Range/Units 01:32 WBC 5.4 (4.3-11.1) K/mcL Hgb 13.0 (12.9-16.9) g/dL Hct 40.6 (37.5-50.1) % Plt Count 249 (140-400) K/mcL Neutrophils # 3.7 (1.6-8.9) K/mcL BMP 10/12/17 01:32 Sodium 132 L Potassium 3.8 Chloride 98 Carbon Dioxide 26 BUN 25 H Creatinine 1.19 Glucose 154 H Calcium 8.6 Liver Function 10/12/17 Range/Units 01:32 Total Bilirubin 2.2 H (0.3-1.0) mg/dL Direct Bilirubin 1.3 H (0.0-0.2) mg/dL AST 43 H (13-39) Units/L ALT 49 (7-52) Units/L Alkaline Phosphatase 176 H (34-104) Units/L Albumin 3.6 (3.5-5.7) g/dL - ABG Interpretation ABG results: PT/INR, D-dimer PT 19.0 Seconds (9.4-12.1) H 10/11/17 14:48 Consult Discharge Plan - Plan Referrals: NONE,PCP [Primary Care Provider] -
[2017-10-13 01:30] LABS: Hepatitis A Antibody IgM Nonreactive (Nonreactive); Hepatitis B Core IgM Nonreactive (Nonreactive); Hepatitis C Virus Antibody Nonreactive (Nonreactive)
[2017-10-13] MEDS: Furosemide 20 MG/2 ML VIAL IVP SCH ×3 (06:22→21:13)
[2017-10-13] MEDS: Apixaban 5 MG TABLET PO SCH ×2 (08:44→21:13)
[2017-10-13 09:00] LABS: Alanine Aminotransferase 45 Units/L (7-52); Albumin 3.4 g/dL (3.5-5.7); Albumin/Globulin Ratio 1.1 (1.1-2.2); Alkaline Phosphatase 169 Units/L (34-104); Aspartate Amino Transferase 36 Units/L (13-39); BUN/Creatinine Ratio 17 (6-26); Bilirubin,Total 2.7 mg/dL (0.3-1.0); Blood Urea Nitrogen 21 mg/dL (6-20); Calcium 8.9 mg/dL (8.6-10.3); Carbon Dioxide 30 mEq/L (23-29); Chloride 100 mEq/L (98-107); Globulin 3.1 g/dL (2.4-3.5); Glucose 117 mg/dL (70-105); Osmolality,Calculated 290 (280-300); Potassium 3.6 mEq/L (3.5-5.1); Sodium 138 mEq/L (136-145); Total Protein 6.5 g/dL (6.4-8.9); eGFR For African Americans > 60 (> 60); eGFR For Non-African Americans > 60 (> 60)
--- NOTE | 2017-10-13 11:17 | Cardiology Progress Note ---
Date of Encounter: 10/13/17 Time of Encounter: 11:12 Assessment and Plan (1) Atrial fibrillation Current Visit: Yes Status: Acute Hx of PAF on BB and Eliquis. Currently NSR. Qualifiers: Atrial fibrillation type: paroxysmal Qualified Code(s): I48.0 - Paroxysmal atrial fibrillation (2) Systolic CHF Current Visit: Yes Status: Acute Acute on chronic CHF secondary to medication/dietary non-compliance. Recent hospitalizations for CHF at OSH. Hospitalization 09/24-09/29/[address] [facility] and also from 10/02-10/06/17 at [facility] due to CHF exacerbation. TTE 10/03/17, EF 20%. Has AICD (suspect BiV). CXR: mild cardiomegaly. BNP 1848. Responded well to lasix 20 mg IV Q8 hr. Cumulative I&O: -2430 mL. Continue BB and diuresis for 24 hours then convert back to oral. Agree with addition of lisinopril. Strict I&Os, daily weights, Na/Fluid restriction diet. Low sodium diet and compliance with medications stressed. Close out-pt f/u. Patient states that he see's clerk supervisor in [place]. Cardiology will sign off. Call with questions. Qualifiers: Heart failure chronicity: acute on chronic Qualified Code(s): I50.23 - Acute on chronic systolic (congestive) heart failure (3) Ischemic cardiomyopathy Current Visit: Yes Status: Chronic Reported long-standing history of ICMP ~ 9years. Hx of CAD s/p CABG, PCI. Reports recent generator change by clerk supervisor in [place], [place] around 6 months ago, per CXR appears to be BiV-ICD. Plan as above; continue asa, statin, BB, aceI. No recent ischemic eval. Recommend stress test as out patient. Discussion w patient/family: The assessment and plan as outlined above was discussed with the patient and/or family members who expressed understanding and agreement. All questions were answered. Thank you for involving us in the care of your patient. Please call with any questions. Subjective Principal diagnosis: acute on chronic CHF Objective Vital Signs, Last 4 Hours Temp Pulse Resp BP Pulse Ox 10/13/17 07:35 97.8 F 98 16 100/68 98 Results 10/12/17 01:32 10/13/17 08:36 Lab Results 10/13/17 08:36 Sodium 138 Potassium 3.6 Chloride 100 Carbon Dioxide 30 H BUN 21 H Creatinine 1.22 Glucose 117 H Calcium 8.9 Total Bilirubin 2.7 H AST 36 ALT 45 Alkaline Phosphatase 169 H Consult Discharge Plan - Plan Referrals: NONE,PCP [Primary Care Provider] -
--- NOTE | 2017-10-13 13:03 | Internal Med Progress Note ---
Date of Encounter: 10/13/17 Time of Encounter: 13:00 - Assessment and plan (1) Heart failure, systolic, with acute decompensation Current Visit: Yes Status: Acute Assessment and plan: Acute on chronic systolic cardiac failure. Patient with prior ejection fraction in the low 20s. He seems to have dietary indiscretion and problems with adherence to medication regimen. Continue IV diuresis for another day per cardiology and then to oral Appreciate cardiology follow-up. Continue to optimize medical management at this time. Continue low-dose of THONG inhibitor keeping close eye on his blood pressures. Continue fluid restriction and a strict input and output. Check daily weights. (2) Acute kidney injury superimposed on chronic kidney disease Current Visit: Yes Status: Acute Assessment and plan: Creatinine 1.22. Continue low-dose THONG inhibitor's (3) CAD (coronary artery disease) Current Visit: Yes Status: Acute Assessment and plan: Continue home medication. Follow cardiology recommendations with likely discharge in am. Qualifiers: Coronary Disease-Associated Artery/Lesion type: bypass graft [place] vs. transplanted heart: [place] heart Associated angina: without angina Qualified Code(s): I25.810 - Atherosclerosis of coronary artery bypass graft(s) without angina pectoris (4) History of hypertension Current Visit: Yes Status: Acute Assessment and plan: Blood pressure is in the high 90s to low 100s and is consistent with patient's poor ejection fraction (5) Atrial fibrillation Current Visit: Yes Status: Acute Assessment and plan: Rate controlled, continue anticoagulation. Qualifiers: Atrial fibrillation type: paroxysmal Qualified Code(s): I48.0 - Paroxysmal atrial fibrillation (6) Elevated LFTs Current Visit: Yes Status: Acute Assessment and plan: Likely as a result of chronic passive congestion from underlying CHF. Repeat labs improving - Time Spent With Patient Total time spent is greater than 50% in coordination of care (as documented) at patient's floor/unit and/or counseling patient: - Subjective Interval history: Patient is sitting up in bed just finished lunch. He has no complaints. He states his edema is better he reports his breathing is also better. No further shortness of breath and denies chest pain - Constitutional Vitals: Temp Pulse Resp BP Pulse Ox 97.3 F L 77 13 115/69 100 10/13/17 11:41 10/13/17 11:41 10/13/17 11:41 10/13/17 11:41 10/13/17 11:41 General appearance: Present: cooperative, pleasant, answers questions appropriately - Head Head exam: Present: atraumatic, normocephalic - Eye Eye exam: Present: PERRL, conjuntiva pink, sclera anicteric Pupils: Present: PERRL - Neck Neck exam general surgery: Present: supple, trachea midline. Absent: lymphadenopathy - Respiratory Respiratory exam: Present: CTAB. Absent: accessory muscle use, rales, rhonchi, wheezes - Cardiovascular Cardiovascular exam: Present: RRR, +S1, +S2. Absent: diastolic murmur, gallop, rubs, systolic murmur - GI/Abdominal GI/Abdominal exam: Present: normal bowel sounds, soft, no peritoneal signs. Absent: distended, tenderness - Extremities Exam Extremities exam: Present: pedal edema, warm, radial pulses palpable and symmetrical. Absent: calf tenderness, cyanotic Additional comments: 1 + pedal lower extremity edema - Neurological Exam Neurological exam: Present: alert, CN II-XII intact, oriented X3, no focal deficits. Absent: pronater drift, facial droop, speech deficit - Skin Skin exam: Present: dry, intact, normal color, warm Internal Medicine: Result - Labs CBC & Chem 7: 10/12/17 01:32 10/13/17 08:36 Labs: BMP 10/13/17 08:36 Sodium 138 Potassium 3.6 Chloride 100 Carbon Dioxide 30 H BUN 21 H Creatinine 1.22 Glucose 117 H Calcium 8.9 Liver Function 10/13/17 Range/Units 08:36 Total Bilirubin 2.7 H (0.3-1.0) mg/dL AST 36 (13-39) Units/L ALT 45 (7-52) Units/L Alkaline Phosphatase 169 H (34-104) Units/L Albumin 3.4 L (3.5-5.7) g/dL - ABG Interpretation ABG results: PT/INR, D-dimer PT 19.0 Seconds (9.4-12.1) H 10/11/17 14:48 Consult Discharge Plan - Plan Referrals: NONE,PCP [Primary Care Provider] -
[2017-10-14] MEDS: Furosemide 20 MG/2 ML VIAL IVP SCH (05:37)
[2017-10-14 06:23] LABS: Hematocrit 41.1 % (37.5-50.1); Hemoglobin 12.9 g/dL (12.9-16.9); Mean Corpuscular HGB Conc 31.4 g/dL (31.6-35.5); Mean Corpuscular Hemoglobin 26.8 pg (28.0-33.3); Mean Corpuscular Volume 85.4 fL (83.0-100.0); Mean Platelet Volume 9.6 fL (9.4-12.4); Platelet Count 276 K/mcL (140-400); Red Blood Count 4.81 M/mcL (4.19-5.50); Red Cell Distribution Width 15.9 % (11.5-14.5)
[2017-10-14 06:46] LABS: BUN/Creatinine Ratio 16 (6-26); Blood Urea Nitrogen 19 mg/dL (6-20); Calcium 8.8 mg/dL (8.6-10.3); Carbon Dioxide 27 mEq/L (23-29); Chloride 101 mEq/L (98-107); Glucose 96 mg/dL (70-105); Osmolality,Calculated 286 (280-300); Potassium 3.3 mEq/L (3.5-5.1); Sodium 137 mEq/L (136-145); eGFR For African Americans > 60 (> 60); eGFR For Non-African Americans > 60 (> 60)
[2017-10-14 07:12] VITALS: BP 93/62
--- NOTE | 2017-10-14 07:43 | Discharge Summary ---
- NOTES TO OUTPATIENT PROVIDER Notes to Outpatient Provider: F/U with PCP in 5 to 7 days. F/U with [place] supervisor cd area within 1 week Date of Encounter: 10/14/17 Time of Encounter: 07:40 - Discharge Diagnosis (1) Heart failure, systolic, with acute decompensation Priority: Primary Status: Acute (2) Acute kidney injury superimposed on chronic kidney disease Priority: Primary Status: Acute (3) CAD (coronary artery disease) Priority: Primary Status: Chronic Qualifiers: Coronary Disease-Associated Artery/Lesion type: bypass graft [place] vs. transplanted heart: [place] heart Associated angina: without angina Qualified Code(s): I25.810 - Atherosclerosis of coronary artery bypass graft(s) without angina pectoris (4) History of hypertension Priority: Primary Status: Chronic (5) Atrial fibrillation Priority: Primary Status: Chronic Qualifiers: Atrial fibrillation type: paroxysmal Qualified Code(s): I48.0 - Paroxysmal atrial fibrillation (6) Elevated LFTs Priority: Primary Status: Chronic Hospital course: Mr. Rodrigez is a 56 year old male with a past medical history of chronic systolic congestive heart failure with EF via transthoracic echo from September 2017 with EF less than 20% who presented with shortness of breath. He had 2 recent hospitalizations 2 weeks ago and 4 days ago at outside hospitals. From reading through the chart he is noncompliant with medications and plan. Patient had complained of shortness of breath with both ALTs and at rest and positive for orthopnea. He has had peripheral edema for 2-3 weeks and estimated weight gain of 10 pounds in the last month. He is here visiting his mother and she will a coffee and normally follows with a supervisor cd area in [place]. He was diuresed with IV Lasix 3 times a day here and has done very well. Cardiology saw the patient for acute on chronic CHF secondary to medication and dietary noncompliance. He had a recent hospitalization at OSH for CHF and was recently on Bumex. He was also hospitalized from 318-323 at [facility] and from 326 to 3:30 at [facility] with CHF exacerbations. 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 Chest x-ray had revealed mild cardiomegaly and a BNP was resulted at 1848. On discharge will continue beta shala and Lasix. He will also have lisenopril added to his medication regime. He should follow a low-sodium diet and be compliant with his medications. He needs close outpatient follow-up with his supervisor cd area in [place]. He also has a history of atrial fibrillation/PAF on a beta shala and Eliquis with good rate control and in sinus rhythm during his stay. The patient stated he had a recent generator change by his supervisor cd area in [facility] around 6 months ago. Cardiology recommended outpatient stress test by his [place] supervisor cd area. His potassium was replaced. His edema is significantly reduced and his lungs are now clear on exam. Discussed importance of following his medication and diet regime and he verbalized understanding. Discharge discussed with: patient, nurse - Time Spent with Patient Total time spent providing and/or coordinating discharge services: Less than 30 minutes - Discharge Medications Prescriptions: Furosemide [Lasix] 20 mg PO BID 30 Days #60 tablet Lisinopril [Zestril] 2.5 mg PO DAILY 30 Days #15 tablet Home Medications: Apixaban [Eliquis] 5 mg PO BID 10/11/17 [History] Carvedilol 3.125 mg PO BID 10/11/17 [History] Lidocaine Patch [Lidoderm 5% patch] 1 each TP DAILY PRN 10/11/17 [History] Lovastatin [Mevacor] 20 mg PO QPM 10/11/17 [History] Oxycodone HCl/Acetaminophen [Percocet 5-325 mg Tablet] 1 each PO Q6H PRN [History] Pantoprazole Sodium [Protonix] 40 mg PO QAM 10/11/17 [History] Potassium Chloride [K-Tab ER] 20 meq PO BID 10/11/17 [History] Furosemide [Lasix] 20 mg PO BID 30 Days #60 tablet 10/14/17 [Rx] Lisinopril [Zestril] 2.5 mg PO DAILY 30 Days #15 tablet 10/14/17 [Rx] Allergies/Adverse Reactions: 3 Allergy/AdvReac Type Severity Reaction Status Date / Time No Known Allergies Allergy Verified 10/11/17 14:43 Date of admission: 10/11/17 22:08 Primary care physician: PCP NONE Consults: 10/12/17 00:45 Consult to Cardiology [CONS] Routine Comment: Consulting Provider: Cardiology Debby Reason for Consult: EF <F 20-% Call Completed: No Discharging clinician: Selma James Anticipated date of discharge: 10/14/17 - Constitutional Vitals: Temp Pulse Resp BP Pulse Ox 98.2 F 70 16 93/62 93 10/14/17 07:06 10/14/17 07:06 10/14/17 07:06 10/14/17 07:06 10/14/17 07:06 General appearance: Present: cooperative, pleasant, no acute distress, answers questions appropriately - Head Head exam: Present: atraumatic, normocephalic - Eye Eye exam: Present: PERRL, conjuntiva pink, sclera anicteric Pupils: Present: PERRL - Neck Neck exam general surgery: Present: supple, trachea midline. Absent: lymphadenopathy - Respiratory Respiratory exam: Present: CTAB. Absent: accessory muscle use, rales, rhonchi, wheezes - Cardiovascular Cardiovascular exam: Present: RRR, +S1, +S2. Absent: diastolic murmur, gallop, rubs, systolic murmur - GI/Abdominal GI/Abdominal exam: Present: normal bowel sounds, soft, no peritoneal signs. Absent: distended, tenderness - Extremities Exam Extremities exam: Present: pedal edema, warm, radial pulses palpable and symmetrical. Absent: calf tenderness, cyanotic Additional comments: trace pedal edema - Neurological Exam Neurological exam: Present: alert, CN II-XII intact, oriented X3, no focal deficits. Absent: pronater drift, facial droop, speech deficit - Skin Skin exam: Present: dry, intact, normal color, warm - Patient Status Disposition: Home, Self-Care Condition: Undetermined Functional capacity at discharge: independent ambulation Overall status at discharge: patient is progressing back to baseline - Discharge Instructions Follow Up With: NONE,PCP [Primary Care Provider] - Additional Instructions: f/u outpatient with supervisor cd area in [place] - Diet and Activity Activity: increase activity as tolerated Diet: low fat, low cholesterol, low salt diet
[2017-10-14] MEDS: Apixaban 5 MG TABLET PO SCH (08:45)
--- NOTE | 2017-10-14 13:37 | Electrocardiograph Report ---
[address] [address] Test Date: 2017-10-11 Pat Name: Les Rodrigez Department: 104 Room: 3A47 Gender: M Re Recording Mixer: IRENE : [id number] Requested By: Misael Dunlap Order Number: [id number] Reading MD: Le Frank Measurements Intervals [place] Rate: 82 P: 63 WI: 146 QRS: 236 QRSD: 122 T: 69 QT: 396 QTc: 435 Interpretive Statements ELECTRONIC VENTRICULAR PACEMAKER ABNORMAL RHYTHM ECG Electronically Signed On 10-14-2017 13:35:44 EDT by Le Frank
== END 2017-10-14 10:05 | disposition home or self-care (01) | DRG 291 ==
LOC: 2SOUTHHOLD 14:16 → EMEROO 14:16 → 2SOUTHHOLD 22:03 → SUATTDRO 22:08 → 3ANU 10-13 18:56
PROVIDERS: ADMIT Internal Medicine; ATTEND Internal Medicine